=== PATIENT | female | born 1960 | race Caucasian/White ===

== ENCOUNTER 2017-09-06 12:44 | Emergency (ER) | payer OTHER ==
[~2017-09-06] VITALS: Ht 157.5 cm; Wt 105.7 kg
[~2017-09-06 12:44] MED LIST: ALBUTEROL2.5 MG/3 M IH; AMLODIPINE BESYL5 MG PO; CILOSTAZOL100 MG PO; COUMADIN1 MG PO; DIOVAN40 MG PO; DIOVAN80 MG PO; EFFEXOR XR150 MG PO; ENDOCET 5-3251 EACH PO; FLOVENT 22120 INHALA PO; HYCODAN SYRUP480 ML PO; HYDROCODON-ACE1 EAC7 PO; HYGROTON25 MG PO; LAMICTAL XR50 MG PO; LAMICTAL100 MG PO; METOPROLOL TART50 MG PO; NASONEX17 GM NS; NORCO 5/3251 TABLET PO; PRILOSEC OTC20 MG PO; RANITIDINE HCL150 MG PO; ROPINIROLE HCL1 MG PO; SIMVASTATIN40 MG PO; TESSALON PERLE100 MG PO; TOPROL XL6.25 MG PO; TOVIAZ8 MG PO; XARELTO20 MG PO; ZITHROMAX250 MG PO; ZOFRAN4 MG PO
[2017-09-06 14:06] VITALS: BP 165/78
[2017-09-11] MEDS ORDERED: MOBIC7.5 MG PO (14:06)
[2017-09-11] MEDS ORDERED: VENTOLIN HFA18 GM IH (14:06)
[2017-09-11] MEDS ORDERED: FLOVENT 22120 INHALA IH (14:07)
[2017-09-11] MEDS ORDERED: ENDOCET 5-3251 EACH PO (14:09)
== END 2017-09-06 14:07 | disposition home or self-care (01) ==
LOC: EME 12:44
DX: M25.561 Pain in right knee (principal); M19.90 Unspecified osteoarthritis, unspecified site; Z88.0 Allergy status to penicillin; Z88.8 Allergy status to other drugs, medicaments and biological substances
CPT/HCPCS: 99281; 99284

== ENCOUNTER → 2017-09-12 | Outpatient (CLI) | payer OTHER ==
[~2017-09-12] VITALS: Ht 157.5 cm; Wt 108.4 kg
[~2017-09-12] MED LIST changes: +FLOVENT 22120 INHALA IH; +MOBIC7.5 MG PO; +VENTOLIN HFA18 GM IH
== END | disposition home or self-care (01) ==
LOC: AMB 11:21
PROC: 0DJD8ZZ Inspection of Lower Intestinal Tract, Via Natural or Artificial Opening Endoscopic (ICD-10-PCS; principal; 2017-09-12)
DX: Z12.11 Encounter for screening for malignant neoplasm of colon (principal); K64.8 Other hemorrhoids; J45.909 Unspecified asthma, uncomplicated; K21.9 Gastro-esophageal reflux disease without esophagitis; E78.5 Hyperlipidemia, unspecified; I10 Essential (primary) hypertension; G47.33 Obstructive sleep apnea (adult) (pediatric); Z79.01 Long term (current) use of anticoagulants; E55.9 Vitamin D deficiency, unspecified; M17.0 Bilateral primary osteoarthritis of knee; Z86.79 Personal history of other diseases of the circulatory system; Z90.710 Acquired absence of both cervix and uterus; Z95.828 Presence of other vascular implants and grafts; Z87.891 Personal history of nicotine dependence; Z83.79 Family history of other diseases of the digestive system; Z82.49 Family history of ischemic heart disease and other diseases of the circulatory system; Z82.0 Family history of epilepsy and other diseases of the nervous system; Z80.42 Family history of malignant neoplasm of prostate; Z83.3 Family history of diabetes mellitus; Z80.3 Family history of malignant neoplasm of breast; Z88.0 Allergy status to penicillin; Z88.6 Allergy status to analgesic agent; Z88.8 Allergy status to other drugs, medicaments and biological substances
CPT/HCPCS: 93005; J2250; J3010

== ENCOUNTER → 2018-04-16 | Outpatient (CLI) | payer OTHER | END | disposition home or self-care (01) | LOC: CDC | DX: Z01.810 Encounter for preprocedural cardiovascular examination (principal) | CPT/HCPCS: 93000 ==

== ENCOUNTER 2018-05-10 22:01 | Inpatient (IN) | payer OTHER ==
[~2018-05-10] VITALS: Ht 157.5 cm; Wt 103.6 kg
[2018-05-11 12:52] VITALS: BP 158/65
[2018-05-11 17:15] LABS: HEMATOCRIT 35.4 % (36.0-46.0); HEMOGLOBIN 11.6 G/DL (11.9-15.5); MCH 27.8 PG (29.0-34.0); MCHC 32.8 G/DL (30.0-36.0); MCV 84.9 FL (83-99); RBC DIS.WIDTH-CV 13.9 % (11.8-14.6); RBC DIS.WIDTH-SD 43.1 % (39-53); RED BLOOD COUNT 4.17 M/uL (3.80-5.20); WHITE BLOOD COUNT 9.2 K/uL (4.1-10.2)
[2018-05-11 17:18] LABS: PLATELET COUNT 194 K/uL (156-360)
[2018-05-11 17:37] LABS: TROP-I INTERPRETATION NEGATIVE; TROPONIN-I < 0.01 ng/mL (0.0-0.30)
[2018-05-11 17:38] LABS: CHLORIDE 108 MEQ/L (99-109); CREATININE 0.8 MG/DL (0.6-1.3); GFR ESTIMATE (CALCULATED) > 59 mL/min/; GLUCOSE 134 mg/dL (70-99); POTASSIUM 3.8 MEQ/L (3.7-5.4); SODIUM 141 MEQ/L (136-147); UREA NITROGEN (BUN) 11 mg/dL (9-23)
[2018-05-11 18:33] VITALS: BP 106/57
[2018-05-11 22:00] VITALS: BP 104/58
[2018-05-12 00:20] VITALS: BP 107/55
[2018-05-12 05:57] VITALS: BP 92/51
[2018-05-12 06:12] VITALS: BP 114/70
[2018-05-12 06:25] LABS: HEMATOCRIT 34.3 % (36.0-46.0); HEMOGLOBIN 10.9 G/DL (11.9-15.5); MCH 26.9 PG (29.0-34.0); MCHC 31.8 G/DL (30.0-36.0); MCV 84.7 FL (83-99); PLATELET COUNT 219 K/uL (156-360); RBC DIS.WIDTH-CV 13.8 % (11.8-14.6); RBC DIS.WIDTH-SD 42.7 % (39-53); RED BLOOD COUNT 4.05 M/uL (3.80-5.20); WHITE BLOOD COUNT 11.3 K/uL (4.1-10.2)
[2018-05-12 06:41] LABS: TROP-I INTERPRETATION NEGATIVE; TROPONIN-I < 0.01 ng/mL (0.0-0.30)
[2018-05-12 06:46] LABS: CHLORIDE 106 MEQ/L (99-109); CREATININE 0.8 MG/DL (0.6-1.3); GFR ESTIMATE (CALCULATED) > 59 mL/min/; GLUCOSE 139 mg/dL (70-99); SODIUM 139 MEQ/L (136-147); UREA NITROGEN (BUN) 13 mg/dL (9-23)
[2018-05-12 07:05] VITALS: BP 123/67
[2018-05-12 07:10] LABS: POTASSIUM 4.6 MEQ/L (3.7-5.4)
[2018-05-12] MEDS ORDERED: HYDROCODON-ACE1 EAC7 PO (09:24)
[2018-05-12 12:05] VITALS: BP 118/59
== END 2018-05-12 16:07 | disposition home or self-care (01) | DRG 254 ==
LOC: ENRESERV 22:01 → 2SOUTH 05-11 08:47 → ENRESERV 05-11 16:43 → 4EAST 05-11 18:10
PROVIDERS: Surgery
DX: I70.322 Atherosclerosis of unspecified type of bypass graft(s) of the extremities with rest pain, left leg (principal); R09.02 Hypoxemia; I89.0 Lymphedema, not elsewhere classified; I10 Essential (primary) hypertension; J45.909 Unspecified asthma, uncomplicated; M19.90 Unspecified osteoarthritis, unspecified site; M47.894 Other spondylosis, thoracic region; K21.9 Gastro-esophageal reflux disease without esophagitis; G47.30 Sleep apnea, unspecified; Z79.01 Long term (current) use of anticoagulants; Z88.0 Allergy status to penicillin; Z88.6 Allergy status to analgesic agent; Z87.891 Personal history of nicotine dependence
CPT/HCPCS: 71046; 80048; 84484; 85027; 87641; 93005; 94640; 94640 76; 94660; 94760; 94799; 99202; C1725; C1769; C1874; C1894; J1100; J1170; J1644; J2405; J2710; J2720; J3010; J7120; J7643

== ENCOUNTER 2018-06-30 15:09 | Emergency (ER) | payer OTHER ==
[~2018-06-30] VITALS: Ht 157.5 cm; Wt 102.0 kg
[2018-06-30] MEDS ORDERED: ULTRACET1 TABLET PO (18:08)
[2018-06-30 18:32] VITALS: BP 135/99
== END 2018-06-30 18:36 | disposition home or self-care (01) ==
LOC: EME 15:09
DX: S83.91XA Sprain of unspecified site of right knee, initial encounter (principal); W10.9XXA Fall (on) (from) unspecified stairs and steps, initial encounter; K21.9 Gastro-esophageal reflux disease without esophagitis; J45.909 Unspecified asthma, uncomplicated; F41.9 Anxiety disorder, unspecified; F32.9 Major depressive disorder, single episode, unspecified; Z87.891 Personal history of nicotine dependence; Z85.828 Personal history of other malignant neoplasm of skin; Z90.710 Acquired absence of both cervix and uterus; Z88.6 Allergy status to analgesic agent; Z88.0 Allergy status to penicillin; Z88.8 Allergy status to other drugs, medicaments and biological substances
CPT/HCPCS: 73564; 99281; 99284